=== PATIENT | male | born 1955 | race Caucasian/White ===

== ENCOUNTER 2021-05-20 20:13 | Inpatient (IN) | payer OTHER ==
[2021-05-20 22:08] LABS: BASO % 1.7 % (0-2.0); EOS % 1.5 % (0-4.5); HEMATOCRIT 41.1 % (35.4-49); HEMOGLOBIN 14.1 GM/dL (11.7-16.9); LYMPH % 28.2 % (8-40); MCH 32.3 pg (25.7-33.7); MCHC 34.3 g/dl (32.0-35.9); MEAN PLT VOLUME 7.5 fl (7.5-11.1); MONO % 9.9 % (3.8-10.2); NEUT % 58.7 % (42.8-82.8); PLATELET COUNT 246 10^3/uL (134-434); RBC 4.37 M/mm3 (4.00-5.60); WHITE BLOOD COUNT 7.6 K/mm3 (4.0-10.0)
[2021-05-20 22:24] LABS: INR 0.98 (0.83-1.09); PROTHROMBIN TIME (PATIENT) 11.9 SEC (9.7-13.0)
[2021-05-20 22:26] LABS: ACTIVATED PTT 31.4 SECONDS (25.2-36.5)
[2021-05-20 22:27] LABS: CHLORIDE 110 mmol/L (98-107); SODIUM 142 mmol/L (136-145)
[2021-05-20 22:28] LABS: ALBUMIN 3.6 g/dl (3.4-5.0); ANION GAP 6 MMOL/L (8-16); CALCIUM 8.6 mg/dL (8.5-10.1); CO2 26 mmol/L (21-32)
[2021-05-20 22:30] LABS: BLOOD UREA NITROGEN 22.4 mg/dL (7-18); GLUCOSE,RANDOM 114 mg/dL (74-106)
[2021-05-20 22:33] LABS: SGOT/AST 15 U/L (15-37); SGPT/ALT 20 U/L (13-61)
[2021-05-20 22:34] LABS: BILIRUBIN,TOTAL 0.3 mg/dL (0.2-1); TOT PROT 7.5 g/dl (6.4-8.2)
[2021-05-20 22:35] LABS: ALK PHOS 92 U/L (45-117)
[2021-05-20 23:04] LABS: EPI CELLS 1 /uL (0-25.1); HYALINE CASTS 20 /uL (0-3.1); PH,URINE 6.5 (5.0-8.0); URINE APPEARANCE CLEAR; URINE BACTERIA 5732 /uL (0-1359); URINE BILIRUBIN NEGATIVE (NEGATIVE); URINE COLOR YELLOW; URINE GLUCOSE (UA) NEGATIVE (NEGATIVE); URINE KETONE NEGATIVE (NEGATIVE); URINE LEUK ESTERASE 2+ (NEGATIVE); URINE NITRITE POSITIVE (NEGATIVE); URINE PROTEIN NEGATIVE (NEGATIVE); URINE RBC 17 /uL (0-23.9); URINE WBC 216 /uL (0-25.8)
[2021-05-21] MEDS ORDERED: CEFTRIAXONE 1,000 MG in DEXTROSE 5%-WATER - 50 ML IVPB ONE (00:34)
[2021-05-21] MEDS ORDERED: CEFTRIAXONE 1 GM/50 ML BAG ONE (00:47)
[2021-05-21] MEDS: SODIUM CHLORIDE 1,000 ML IV SCH ×2 (03:28→13:32)
[2021-05-21 05:20] LABS: URINE CRYSTALS MODERATE /hpf
[2021-05-21] MEDS: INSULIN SLIDING SCALE (NOVOLOG) 1 VIAL SQ SCH ×3 (05:59→17:11)
[2021-05-21] MEDS ORDERED: TAMSULOSIN HCL 0.4 MG CAP PO SCH (08:30)
[2021-05-21] MEDS ORDERED: CEFTRIAXONE 1 GM in DEXTROSE 5%-WATER - 50 ML IVPB SCH (10:00)
[2021-05-21 10:32] LABS: BASO % 0.5 % (0-2.0); HEMATOCRIT 40.3 % (35.4-49); HEMOGLOBIN 14.2 GM/dL (11.7-16.9); LYMPH % 23.5 % (8-40); MCH 32.9 pg (25.7-33.7); MCHC 35.3 g/dl (32.0-35.9); MEAN CELL VOLUME 93.2 fl (80-96); MEAN PLT VOLUME 7.5 fl (7.5-11.1); PLATELET COUNT 216 10^3/uL (134-434); RBC 4.32 M/mm3 (4.00-5.60); RDW 13.2 % (11.9-15.9)
[2021-05-21 10:46] LABS: INR 1.03 (0.83-1.09); PROTHROMBIN TIME (PATIENT) 12.6 SEC (9.7-13.0)
[2021-05-21 10:57] LABS: CHOLESTEROL 154 mg/dL (50-200)
[2021-05-21 10:59] LABS: ALBUMIN 3.3 g/dl (3.4-5.0); BLOOD UREA NITROGEN 13.2 mg/dL (7-18); CALCIUM 8.1 mg/dL (8.5-10.1); MAGNESIUM 2.2 mg/dL (1.8-2.4); TRIGLYCERIDES 91 mg/dL (0-150)
[2021-05-21 11:00] LABS: LDL CHOLESTEROL (ONLY SJRH) 94 mg/dL (5-100)
[2021-05-21 11:03] LABS: PHOSPHOROUS 2.5 mg/dL (2.5-4.9)
[2021-05-21 11:04] LABS: BILIRUBIN,TOTAL 0.8 mg/dL (0.2-1); HDL CHOLESTEROL 40 mg/dL (40-60)
[2021-05-21 11:05] LABS: CREATININE 0.6 mg/dL (0.55-1.3)
[2021-05-21] MEDS ORDERED: cefTRIAXone SODIUM 1 GM VIAL ONE (13:39)
[2021-05-21] MEDS ORDERED: DEXTROSE 5%-WATER - 50 ML IVPB ONE (13:40)
[2021-05-21] MEDS ORDERED: ONDANSETRON 4 MG/2 ML VIAL IVPUSH PRN ×2 (17:20→18:57)
[2021-05-21] MEDS ORDERED: PROPOFOL 20 ML ONE (17:23)
[2021-05-21] MEDS ORDERED: LACTATED RINGERS SOLUTION 1,000 ML IV SCH (17:30)
[2021-05-21] MEDS ORDERED: LIDOCAINE HCL 1%, 10 MG/ML (20ML VIAL) ONE (18:03)
[2021-05-21] MEDS ORDERED: DEXAMETHASONE SOD PHOSPHATE 4 MG/1 ML VIAL ONE (18:16)
[2021-05-21] MEDS ORDERED: KETOROLAC TROMETHAMINE 30 MG/1 ML VIAL ONE (18:40)
[2021-05-21] MEDS ORDERED: SODIUM CHLORIDE 1,000 ML IV SCH (18:57)
[2021-05-21] MEDS: LACTATED RINGERS SOLUTION 1,000 ML IV SCH (20:00)
[2021-05-22] MEDS: LACTATED RINGERS SOLUTION 1,000 ML IV SCH (04:31)
[2021-05-22] MEDS ORDERED: CEFTRIAXONE 1 GM in DEXTROSE 5%-WATER - 50 ML IVPB SCH (10:00)
[2021-05-22] MEDS ORDERED: cefTRIAXone SODIUM 1 GM VIAL ONE (10:15)
[2021-05-22] MEDS ORDERED: DEXTROSE 5%-WATER - 50 ML IVPB ONE (10:16)
[2021-05-22] MEDS: TAMSULOSIN HCL 0.4 MG CAP PO SCH (10:26)
[2021-05-22 10:49] LABS: BASO % 0.3 % (0-2.0); EOS % 0.1 % (0-4.5); HEMATOCRIT 40.6 % (35.4-49); HEMOGLOBIN 14.4 GM/dL (11.7-16.9); LYMPH % 12.9 % (8-40); MCH 32.9 pg (25.7-33.7); MCHC 35.3 g/dl (32.0-35.9); MONO % 7.2 % (3.8-10.2); NEUT % 79.5 % (42.8-82.8); PLATELET COUNT 251 10^3/uL (134-434); RBC 4.37 M/mm3 (4.00-5.60); RDW 12.8 % (11.9-15.9); WHITE BLOOD COUNT 9.1 K/mm3 (4.0-10.0)
[2021-05-22 11:08] LABS: ALBUMIN 3.2 g/dl (3.4-5.0); BLOOD UREA NITROGEN 12.1 mg/dL (7-18); CALCIUM 8.3 mg/dL (8.5-10.1)
[2021-05-22 11:11] LABS: CREATININE 0.8 mg/dL (0.55-1.3)
[2021-05-22 11:13] LABS: TOT PROT 6.9 g/dl (6.4-8.2)
[2021-05-22 11:14] LABS: BILIRUBIN,TOTAL 1.3 mg/dL (0.2-1)
[2021-05-22] MEDS ORDERED: PNEUMOC 13-VAL CONJ-DIP CRM/PF 0.5 ML DISP.SYRIN IM ONE (11:30)
[2021-05-22] MEDS ORDERED: DEXTROSE 5%-WATER 100 ML IVPB ONE (17:37)
[2021-05-22] MEDS ORDERED: MEROPENEM 1 GM VIAL (RESTRICTED TO ID) IVPB ONE (17:37)
[2021-05-22] MEDS: MEROPENEM 1 GM in DEXTROSE 5%-WATER 100 ML IVPB SCH (17:47)
[2021-05-22] MEDS ORDERED: PIPERACILLIN/TAZOB 3.375 GM 3.375 GM in DEXTROSE 5%-WATER - 50 ML IVPB SCH (18:00)
[2021-05-23] MEDS ORDERED: MELATONIN 5 MG TABLETS PO ONE (01:08)
[2021-05-23] MEDS: MEROPENEM 1 GM in DEXTROSE 5%-WATER 100 ML IVPB SCH ×3 (01:50→17:29)
[2021-05-23 10:06] LABS: BASO % 0.4 % (0-2.0); EOS % 2.7 % (0-4.5); HEMATOCRIT 42.6 % (35.4-49); LYMPH % 21.2 % (8-40); MCHC 35.3 g/dl (32.0-35.9); MEAN CELL VOLUME 93.5 fl (80-96); MEAN PLT VOLUME 7.9 fl (7.5-11.1); MONO % 9.4 % (3.8-10.2); NEUT % 66.3 % (42.8-82.8); PLATELET COUNT 236 10^3/uL (134-434); RBC 4.56 M/mm3 (4.00-5.60); WHITE BLOOD COUNT 9.1 K/mm3 (4.0-10.0)
[2021-05-23] MEDS ORDERED: MEROPENEM 1 GM VIAL (RESTRICTED TO ID) IVPB ONE ×2 (10:22→17:27)
[2021-05-23] MEDS ORDERED: DEXTROSE 5%-WATER 100 ML IVPB ONE ×2 (10:23→17:28)
[2021-05-23] MEDS: TAMSULOSIN HCL 0.4 MG CAP PO SCH (10:32)
[2021-05-23 10:34] LABS: CALCIUM 8.8 mg/dL (8.5-10.1)
[2021-05-23 10:35] LABS: ALBUMIN 3.4 g/dl (3.4-5.0); BLOOD UREA NITROGEN 11.6 mg/dL (7-18); MAGNESIUM 2.1 mg/dL (1.8-2.4)
[2021-05-23 10:38] LABS: CREATININE 0.7 mg/dL (0.55-1.3)
[2021-05-23 10:39] LABS: BILIRUBIN,TOTAL 0.5 mg/dL (0.2-1); TOT PROT 7.3 g/dl (6.4-8.2)
[2021-05-23 23:18] VITALS: BMI 25.5
[2021-05-24] MEDS: MEROPENEM 1 GM in DEXTROSE 5%-WATER 100 ML IVPB SCH ×3 (01:45→17:42)
[2021-05-24 09:24] LABS: BASO % 0.6 % (0-2.0); EOS % 5.4 % (0-4.5); HEMATOCRIT 45.1 % (35.4-49); HEMOGLOBIN 15.8 GM/dL (11.7-16.9); MCH 32.6 pg (25.7-33.7); MEAN CELL VOLUME 93.3 fl (80-96); MEAN PLT VOLUME 7.8 fl (7.5-11.1); MONO % 9.9 % (3.8-10.2); NEUT % 58.1 % (42.8-82.8); PLATELET COUNT 265 10^3/uL (134-434); RBC 4.83 M/mm3 (4.00-5.60); RDW 13.2 % (11.9-15.9); WHITE BLOOD COUNT 7.2 K/mm3 (4.0-10.0)
[2021-05-24 09:47] LABS: ALBUMIN 3.7 g/dl (3.4-5.0); BLOOD UREA NITROGEN 12.1 mg/dL (7-18); CALCIUM 8.9 mg/dL (8.5-10.1); MAGNESIUM 2.1 mg/dL (1.8-2.4)
[2021-05-24 09:50] LABS: CREATININE 0.8 mg/dL (0.55-1.3)
[2021-05-24 09:51] LABS: BILIRUBIN,TOTAL 0.8 mg/dL (0.2-1); TOT PROT 7.8 g/dl (6.4-8.2)
[2021-05-24] MEDS ORDERED: MEROPENEM 1 GM VIAL (RESTRICTED TO ID) IVPB ONE (10:14)
[2021-05-24] MEDS ORDERED: DEXTROSE 5%-WATER 100 ML IVPB ONE (10:15)
[2021-05-24] MEDS: TAMSULOSIN HCL 0.4 MG CAP PO SCH (10:21)
[2021-05-25] MEDS ORDERED: DEXTROSE 5%-WATER 100 ML IVPB ONE ×3 (01:03→18:20)
[2021-05-25] MEDS ORDERED: MEROPENEM 1 GM VIAL (RESTRICTED TO ID) IVPB ONE ×3 (01:03→18:20)
[2021-05-25] MEDS: MEROPENEM 1 GM in DEXTROSE 5%-WATER 100 ML IVPB SCH ×3 (01:08→18:22)
[2021-05-25 09:10] LABS: BASO % 0.4 % (0-2.0); EOS % 6.5 % (0-4.5); HEMATOCRIT 45.8 % (35.4-49); HEMOGLOBIN 15.7 GM/dL (11.7-16.9); LYMPH % 25.6 % (8-40); MCH 32.8 pg (25.7-33.7); MCHC 34.4 g/dl (32.0-35.9); MEAN CELL VOLUME 95.5 fl (80-96); MEAN PLT VOLUME 7.6 fl (7.5-11.1); MONO % 9.3 % (3.8-10.2); NEUT % 58.2 % (42.8-82.8); PLATELET COUNT 290 10^3/uL (134-434); RDW 13.1 % (11.9-15.9); WHITE BLOOD COUNT 7.2 K/mm3 (4.0-10.0)
[2021-05-25] MEDS: TAMSULOSIN HCL 0.4 MG CAP PO SCH (09:26)
[2021-05-25 09:41] LABS: BLOOD UREA NITROGEN 11.8 mg/dL (7-18)
[2021-05-25 09:42] LABS: ALBUMIN 3.8 g/dl (3.4-5.0); CALCIUM 9.1 mg/dL (8.5-10.1)
[2021-05-25 09:43] LABS: MAGNESIUM 2.2 mg/dL (1.8-2.4)
[2021-05-25 09:44] LABS: BILIRUBIN,TOTAL 0.8 mg/dL (0.2-1); CREATININE 0.8 mg/dL (0.55-1.3)
[2021-05-26] MEDS ORDERED: DEXTROSE 5%-WATER 100 ML IVPB ONE ×2 (02:06→09:25)
[2021-05-26] MEDS ORDERED: MEROPENEM 1 GM VIAL (RESTRICTED TO ID) IVPB ONE ×2 (02:06→09:25)
[2021-05-26] MEDS: MEROPENEM 1 GM in DEXTROSE 5%-WATER 100 ML IVPB SCH ×3 (02:07→18:30)
[2021-05-26] MEDS: TAMSULOSIN HCL 0.4 MG CAP PO SCH (09:43)
[2021-05-26 11:22] LABS: BASO % 0.5 % (0-2.0); EOS % 6.3 % (0-4.5); HEMATOCRIT 43.8 % (35.4-49); HEMOGLOBIN 15.4 GM/dL (11.7-16.9); LYMPH % 19.4 % (8-40); MCH 32.7 pg (25.7-33.7); MCHC 35.1 g/dl (32.0-35.9); MEAN CELL VOLUME 93.2 fl (80-96); MEAN PLT VOLUME 7.4 fl (7.5-11.1); MONO % 8.8 % (3.8-10.2); PLATELET COUNT 274 10^3/uL (134-434); RDW 12.9 % (11.9-15.9); WHITE BLOOD COUNT 6.6 K/mm3 (4.0-10.0)
[2021-05-26 12:13] LABS: BLOOD UREA NITROGEN 15.5 mg/dL (7-18)
[2021-05-26 12:14] LABS: ALBUMIN 3.7 g/dl (3.4-5.0); CALCIUM 9.3 mg/dL (8.5-10.1)
[2021-05-26 12:15] LABS: MAGNESIUM 2.2 mg/dL (1.8-2.4)
[2021-05-26 12:18] LABS: CREATININE 0.8 mg/dL (0.55-1.3)
[2021-05-26 12:19] LABS: BILIRUBIN,TOTAL 0.4 mg/dL (0.2-1); TOT PROT 7.8 g/dl (6.4-8.2)
[2021-05-27 06:50] VITALS: PULSE 81
[2021-05-27 08:56] LABS: BASO % 0.7 % (0-2.0); EOS % 6.7 % (0-4.5); HEMATOCRIT 47.4 % (35.4-49); HEMOGLOBIN 16.3 GM/dL (11.7-16.9); LYMPH % 28.1 % (8-40); MCH 32.2 pg (25.7-33.7); MCHC 34.5 g/dl (32.0-35.9); MEAN CELL VOLUME 93.5 fl (80-96); MEAN PLT VOLUME 7.3 fl (7.5-11.1); MONO % 8.4 % (3.8-10.2); NEUT % 56.1 % (42.8-82.8); PLATELET COUNT 299 10^3/uL (134-434); RBC 5.07 M/mm3 (4.00-5.60); WHITE BLOOD COUNT 7.4 K/mm3 (4.0-10.0)
[2021-05-27 09:17] LABS: CALCIUM 9.4 mg/dL (8.5-10.1)
[2021-05-27 09:18] LABS: ALBUMIN 3.8 g/dl (3.4-5.0); BLOOD UREA NITROGEN 13.7 mg/dL (7-18); MAGNESIUM 2.5 mg/dL (1.8-2.4)
[2021-05-27 09:21] LABS: CREATININE 0.7 mg/dL (0.55-1.3)
[2021-05-27 09:22] LABS: BILIRUBIN,TOTAL 0.7 mg/dL (0.2-1); TOT PROT 8.2 g/dl (6.4-8.2)
[2021-05-27] MEDS: TAMSULOSIN HCL 0.4 MG CAP PO SCH (09:45)
[2021-05-27] MEDS ORDERED: ERTAPENEM SODIUM 1 GM in SODIUM CHLORIDE 50 ML IVPB SCH (10:00)
[2021-05-27 17:13] VITALS: BP 120/82; TEMP 98
== END 2021-05-27 16:58 | disposition home health service (06) | DRG 952 ==
LOC: JER 20:13 → JERBED 05-21 00:34 → J5S 05-21 03:48
PROVIDERS: ADMIT Internal Medicine; ATTEND Nurse Practitioner Acute Care
PROC: 0VT08ZZ Resection of Prostate, Via Natural or Artificial Opening Endoscopic (ICD-10-PCS; principal; 2021-05-21 17:30)
PROC: 0TBB8ZX Excision of Bladder, Via Natural or Artificial Opening Endoscopic, Diagnostic (ICD-10-PCS; 2021-05-21 17:30)
PROC: BT1DZZZ Fluoroscopy of Right Kidney, Ureter and Bladder (ICD-10-PCS; 2021-05-21 17:30)
PROC: 02HV33Z Insertion of Infusion Device into Superior Vena Cava, Percutaneous Approach (ICD-10-PCS; 2021-05-27)
PROC: B518ZZA Fluoroscopy of Superior Vena Cava, Guidance (ICD-10-PCS; 2021-05-27)
DX: C67.9 Malignant neoplasm of bladder, unspecified (principal); N20.1 Calculus of ureter; N39.0 Urinary tract infection, site not specified; R33.9 Retention of urine, unspecified; R30.0 Dysuria; R31.0 Gross hematuria; R55 Syncope and collapse; R42 Dizziness and giddiness; B96.1 Klebsiella pneumoniae [K. pneumoniae] as the cause of diseases classified elsewhere; Z16.12 Extended spectrum beta lactamase (ESBL) resistance
CPT/HCPCS: 36415; 36569; 70450-TC; 71045-TC-FY; 71250-TC; 74177-TC; 77001-TC-FY; 80053; 80061; 81003; 82550; 82553; 82784; 82962; 83036; 83735; 84100; 84153; 84155; 84165; 84443; 84484; 85025; 85610; 85730; 87086; 87186; 88305-TC; 90670; 93005; 93010; 93306-TC; 93880-TC; 94760; 97116-GP; 97162-GP; 99285-25; C1751; C9803; Q9967; U0003; U0005

== ENCOUNTER 2021-05-28 10:55 | Day surgery (SDC) | payer OTHER ==
[~2021-05-28 10:55] MED LIST: ERTAPENEM SODIUM 1 GM in DEXTROSE 5%-WATER - 50 ML IVPB ONE; ERTAPENEM SODIUM 1 GM in SODIUM CHLORIDE 50 ML IVPB ONE
[2021-05-28 11:55] VITALS: BP 117/83; PULSE 85; TEMP 98.3
== END 2021-05-28 12:30 | disposition home or self-care (01) ==
LOC: JINFUSION 10:55 → J7W 10:55 → JINFUSION 12:30
PROVIDERS: ATTEND Internal Medicine Infectious Disease
DX: N39.0 Urinary tract infection, site not specified (principal); C67.9 Malignant neoplasm of bladder, unspecified
CPT/HCPCS: 96365

== ENCOUNTER 2021-05-29 10:57 | Day surgery (SDC) | payer SELFPAY ==
[~2021-05-29 10:57] MED LIST changes: -ERTAPENEM SODIUM 1 GM in DEXTROSE 5%-WATER - 50 ML IVPB ONE
[2021-05-29] MEDS ORDERED: SODIUM CHLORIDE 50 ML IVPB ONE (11:35)
[2021-05-29] MEDS ORDERED: ERTAPENEM SODIUM 1 GM VIAL ONE (11:35)
[2021-05-29 12:33] VITALS: BP 125/73; PULSE 80; TEMP 98
== END 2021-05-29 13:00 | disposition home or self-care (01) ==
LOC: JINFUSION 10:57 → J7W 10:58 → JINFUSION 13:00
PROVIDERS: ATTEND Internal Medicine Infectious Disease
DX: N39.0 Urinary tract infection, site not specified (principal); C67.9 Malignant neoplasm of bladder, unspecified
CPT/HCPCS: 96365

== ENCOUNTER 2021-05-30 12:46 | Day surgery (SDC) | payer SELFPAY ==
[2021-05-30] MEDS ORDERED: ERTAPENEM SODIUM 1 GM VIAL ONE (12:51)
[2021-05-30] MEDS ORDERED: SODIUM CHLORIDE 50 ML IVPB ONE (12:51)
[2021-05-30] MEDS ORDERED: ERTAPENEM SODIUM 1 GM in SODIUM CHLORIDE 50 ML IVPB ONE (13:00)
[2021-05-30 13:17] VITALS: BP 105/56; PULSE 74; TEMP 98.1
== END 2021-05-30 14:19 | disposition home or self-care (01) ==
LOC: JINFUSION 12:46 → J7W 12:47 → JINFUSION 14:19
PROVIDERS: ATTEND Internal Medicine Infectious Disease
DX: N39.0 Urinary tract infection, site not specified (principal); C67.9 Malignant neoplasm of bladder, unspecified
CPT/HCPCS: 96365

== ENCOUNTER 2021-05-31 10:37 | Day surgery (SDC) | payer SELFPAY ==
[2021-05-31] MEDS ORDERED: ERTAPENEM SODIUM 1 GM in SODIUM CHLORIDE 50 ML IVPB ONE ×2 (10:45→11:04)
[2021-05-31] MEDS ORDERED: SODIUM CHLORIDE 50 ML IVPB ONE (11:06)
[2021-05-31] MEDS ORDERED: ERTAPENEM SODIUM 1 GM VIAL ONE (11:06)
[2021-05-31 11:18] VITALS: BP 111/65; PULSE 81; TEMP 98
== END 2021-05-31 11:50 | disposition home or self-care (01) ==
LOC: J7W 10:37 → JINFUSION 10:37
PROVIDERS: ATTEND Internal Medicine Infectious Disease
DX: N39.0 Urinary tract infection, site not specified (principal); C67.9 Malignant neoplasm of bladder, unspecified
CPT/HCPCS: 96365

== ENCOUNTER 2021-06-01 10:12 | Day surgery (SDC) | payer SELFPAY ==
[~2021-06-01 10:12] MED LIST changes: -ERTAPENEM SODIUM 1 GM in SODIUM CHLORIDE 50 ML IVPB ONE; +ERTAPENEM SODIUM 1 GM in SODIUM CHLORIDE 50 ML IVPB SCH
[2021-06-01] MEDS ORDERED: ERTAPENEM SODIUM 1 GM VIAL ONE (10:15)
[2021-06-01] MEDS ORDERED: SODIUM CHLORIDE 50 ML IVPB ONE (10:15)
[2021-06-01 10:48] VITALS: TEMP 98.8
[2021-06-01 11:36] VITALS: BP 116/65; PULSE 79
== END 2021-06-01 12:00 | disposition home or self-care (01) ==
LOC: J7W 10:12 → JINFUSION 10:12
PROVIDERS: ATTEND Internal Medicine Infectious Disease
DX: N39.0 Urinary tract infection, site not specified (principal); C67.9 Malignant neoplasm of bladder, unspecified
CPT/HCPCS: 96365

== ENCOUNTER 2021-06-01 11:53 | Emergency (ER) | payer SELFPAY ==
[2021-06-01 12:24] VITALS: BP 126/75; PULSE 88; TEMP 98.3; BMI 26.9
== END 2021-06-01 15:58 | disposition home or self-care (01) ==
LOC: JERFT 11:53
DX: T83.098A Other mechanical complication of other urinary catheter, initial encounter (principal)
CPT/HCPCS: 99282-25